=== PATIENT | male | born 1960 | race Caucasian/White ===

== ENCOUNTER 2020-12-06 04:52 | Emergency (ER) | payer MEDICAID ==
[~2020-12-06] VITALS: Ht 185.4 cm; Wt 63.6 kg
[2020-12-06] MEDS ORDERED: dexamethasone sod phosphate 10mg/ml inj IV STA (05:08)
[2020-12-06] MEDS ORDERED: piperacillin/tazo 3.375gm/50ml 50 ML IV STA (05:08)
[2020-12-06] MEDS ORDERED: normal saline 1000ML IV soln IVB ONE (05:10)
[2020-12-06] MEDS ORDERED: PRED20TA PO (05:36)
[2020-12-06] MEDS ORDERED: DOXY100C43 PO (05:36)
[2020-12-06 06:11] VITALS: BP 143/85
== END 2020-12-06 06:14 | disposition home or self-care (01) ==
LOC: ER 04:55
DX: L03.211 Cellulitis of face (principal); L30.9 Dermatitis, unspecified; Z88.2 Allergy status to sulfonamides; Z88.8 Allergy status to other drugs, medicaments and biological substances; Z79.2 Long term (current) use of antibiotics; Z79.899 Other long term (current) drug therapy
CPT/HCPCS: 93005; 96365; 96375; 99284; J1100; J2543; J7030; 99285

== ENCOUNTER 2020-12-08 11:30 | Emergency (ER) | payer MEDICAID ==
[~2020-12-08] VITALS: Ht 175.3 cm; Wt 63.0 kg
[~2020-12-08 11:30] MED LIST: DOXY100C43 PO; PRED20TA PO
[2020-12-08] MEDS ORDERED: predniSONE 20 mg tablet PO ONE (13:00)
[2020-12-08] MEDS ORDERED: PRED20TA PO (13:03)
[2020-12-08 13:30] VITALS: BP 138/84
== END 2020-12-08 13:32 | disposition home or self-care (01) ==
LOC: ER 11:31
DX: R22.0 Localized swelling, mass and lump, head (principal); T36.4X5A Adverse effect of tetracyclines, initial encounter; T38.0X5A Adverse effect of glucocorticoids and synthetic analogues, initial encounter; Z88.2 Allergy status to sulfonamides; Z79.2 Long term (current) use of antibiotics; Z79.899 Other long term (current) drug therapy; Y92.89 Other specified places as the place of occurrence of the external cause
CPT/HCPCS: 99283; J7512

== ENCOUNTER 2020-12-16 15:28 | Emergency (ER) | payer MEDICAID ==
[~2020-12-16] VITALS: Ht 175.3 cm; Wt 65.5 kg
[2020-12-16] MEDS ORDERED: diphenhydrAMINE 25mg capsule PO ONE (15:35)
[2020-12-16 15:39] VITALS: BP 125/82
[2020-12-16] MEDS ORDERED: predniSONE 20 mg tablet PO ONE (15:45)
[2020-12-16] MEDS ORDERED: PRED20TA PO (15:51)
== END 2020-12-16 16:14 | disposition home or self-care (01) ==
LOC: ER 15:28
DX: L23.89 Allergic contact dermatitis due to other agents (principal); Z88.2 Allergy status to sulfonamides; Z79.899 Other long term (current) drug therapy
CPT/HCPCS: 99283; J7512; Q0163

== ENCOUNTER 2020-12-30 14:46 | Emergency (ER) | payer MEDICAID ==
[~2020-12-30] VITALS: Ht 175.3 cm; Wt 6.5 kg
[~2020-12-30 14:46] MED LIST changes: -DOXY100C43 PO
[2020-12-30 15:06] VITALS: BP 135/64
[2020-12-30] MEDS ORDERED: diphenhydrAMINE 25mg capsule PO ONE (16:25)
[2020-12-30] MEDS ORDERED: PRED20TA PO (16:38)
[2020-12-30] MEDS ORDERED: HYDR-3686 PO (16:38)
== END 2020-12-30 17:13 | disposition home or self-care (01) ==
LOC: ER 14:46
DX: R21 Rash and other nonspecific skin eruption (principal)
CPT/HCPCS: 99283; Q0163

== ENCOUNTER 2021-01-10 06:40 | Emergency (ER) | payer MEDICAID ==
[~2021-01-10] VITALS: Ht 170.2 cm; Wt 65.9 kg
[2021-01-10] MEDS ORDERED: albuterol 2.5 MG/3 ML nebule NEB ONE (07:15)
[2021-01-10] MEDS ORDERED: CefTRIAXone 2gm/D5W 50ml BAG 50 ML IV ONE (07:15)
[2021-01-10] MEDS ORDERED: methylPREDNISolone sod succ 125mg/2ml vial IV ONE (07:15)
[2021-01-10] MEDS ORDERED: ipratropium/albuterol 3ml nebule NEB ONE (07:15)
--- NOTE | 2021-01-10 08:13 | NUR ---
rt at bedside.
[2021-01-10 08:22] LABS: BASOPHILS # (AUTO) 0.1 X10'3 (0-0.2); BASOPHILS % (AUTO) 0.5 % (0-1); EOSINOPHILS # (AUTO) 0.1 X10'3 (0-0.9); HEMATOCRIT 41.5 % (42.0-52.0); LYMPHOCYTES % (AUTO) 9.2 % (21-51); MEAN CORPUSCULAR HEMOGLOBIN 29.4 PG (27.0-31.0); MEAN CORPUSCULAR HGB CONC 33.7 g/dL (33.0-36.5); MEAN CORPUSCULAR VOLUME 87.1 FL (78-98); MEAN PLATELET VOLUME 6.6 FL (7.4-10.4); MONOCYTES % (AUTO) 8.5 % (2-12); NEUTROPHILS # (AUTO) 9.1 X10'3 (1.8-7.7); NEUTROPHILS % (AUTO) 80.8 % (42-75); PLATELET COUNT 318 X10'3 (140-440); RED BLOOD COUNT 4.77 X10'6 (4.70-6.10); RED CELL DISTRIBUTION WIDTH 15.1 % (11.5-14.5); WHITE BLOOD COUNT 11.3 X10'3 (4.5-11.0)
[2021-01-10 08:30] LABS: ALANINE AMINOTRANSFERASE 14 U/L (12-78); ALBUMIN 3.4 G/DL (3.4-5.0); ALBUMIN/GLOBULIN RATIO 0.9 (1.1-1.5); ALKALINE PHOSPHATASE 91 IU/L (46-116); ANION GAP 4 (8-16); ASPARTATE AMINO TRANSFERASE 22 U/L (10-37); BILIRUBIN,TOTAL 0.2 MG/DL (0.1-1.0); BLOOD UREA NITROGEN 11 MG/DL (7-18); BUN/CREATININE RATIO 15.9 (5.4-32.0); CALCIUM 8.8 MG/DL (8.5-10.1); CHLORIDE 103 MMOL/L (99-107); CREATININE 0.69 MG/DL (0.60-1.10); GLUCOSE 112 MG/DL (70-104); SODIUM 138 MMOL/L (135-145); TOTAL CARBON DIOXIDE 31.2 MMOL/L (24-32); TOTAL PROTEIN 7.2 G/DL (6.4-8.2); eGFR > 90 ML/MIN
[2021-01-10] MEDS ORDERED: PRED20TA PO (09:51)
[2021-01-10] MEDS ORDERED: CEPH-585 PO (09:51)
[2021-01-10] MEDS ORDERED: ALBU18HF2 INH (09:55)
[2021-01-10 10:17] VITALS: BP 119/74
== END 2021-01-10 10:59 | disposition home or self-care (01) ==
LOC: ER 06:41
DX: J44.1 Chronic obstructive pulmonary disease with (acute) exacerbation (principal); R05.9 Cough, unspecified; R09.89 Other specified symptoms and signs involving the circulatory and respiratory systems; R21 Rash and other nonspecific skin eruption; F17.200 Nicotine dependence, unspecified, uncomplicated; Z88.2 Allergy status to sulfonamides; Z88.8 Allergy status to other drugs, medicaments and biological substances; Z79.2 Long term (current) use of antibiotics; Z79.899 Other long term (current) drug therapy
CPT/HCPCS: 36415; 71045; 80053; 85025; 93005; 94640; 96365; 96375; 99285; J0696; J2930; 94760

== ENCOUNTER 2021-01-26 20:51 | Emergency (ER) | payer MEDICAID ==
[~2021-01-26] VITALS: Ht 182.9 cm; Wt 62.0 kg
[2021-01-26 20:51] VITALS: BP 144/74
[~2021-01-26 20:51] MED LIST changes: +ALBU18HF2 INH; +CEPH-585 PO; -PRED20TA PO
[2021-01-26] MEDS ORDERED: BUPR1FIL3 SL (21:09)
[2021-01-26] MEDS ORDERED: PANT-47 PO (21:09)
[2021-01-26] MEDS ORDERED: FLO0.4C PO (21:09)
[2021-01-26] MEDS ORDERED: HYDR-3686 PO (21:11)
--- NOTE | 2021-01-26 21:18 | NUR ---
Pt stood at the side of the bed to remove his pants and his O2 sat dropped from 91% on RA to 83%.
[2021-01-26 21:47] LABS: BASOPHILS % (AUTO) 0.4 % (0-1); EOSINOPHILS # (AUTO) 0.2 X10'3 (0-0.9); EOSINOPHILS % (AUTO) 1.9 % (0-6); HEMATOCRIT 37.3 % (42.0-52.0); HEMOGLOBIN 12.6 g/dl (14.0-17.9); LYMPHOCYTES # (AUTO) 1.2 X10'3 (1.1-4.8); LYMPHOCYTES % (AUTO) 9.6 % (21-51); MEAN CORPUSCULAR HEMOGLOBIN 29.3 PG (27.0-31.0); MEAN CORPUSCULAR HGB CONC 33.8 g/dL (33.0-36.5); MEAN CORPUSCULAR VOLUME 86.7 FL (78-98); MEAN PLATELET VOLUME 6.9 FL (7.4-10.4); MONOCYTES % (AUTO) 8.4 % (2-12); NEUTROPHILS # (AUTO) 9.8 X10'3 (1.8-7.7); NEUTROPHILS % (AUTO) 79.7 % (42-75); PLATELET COUNT 257 X10'3 (140-440); RED CELL DISTRIBUTION WIDTH 14.7 % (11.5-14.5); WHITE BLOOD COUNT 12.3 X10'3 (4.5-11.0)
[2021-01-26 21:57] LABS: ALANINE AMINOTRANSFERASE 17 U/L (12-78); ALBUMIN 3.2 G/DL (3.4-5.0); ALBUMIN/GLOBULIN RATIO 0.8 (1.1-1.5); ALKALINE PHOSPHATASE 101 IU/L (46-116); ANION GAP 3 (8-16); ASPARTATE AMINO TRANSFERASE 23 U/L (10-37); BILIRUBIN,TOTAL 0.3 MG/DL (0.1-1.0); BLOOD UREA NITROGEN 9 MG/DL (7-18); BUN/CREATININE RATIO 12.5 (5.4-32.0); CALCIUM 8.8 MG/DL (8.5-10.1); CHLORIDE 104 MMOL/L (99-107); CREATININE 0.72 MG/DL (0.60-1.10); GLUCOSE 98 MG/DL (70-104); POTASSIUM 3.7 MMOL/L (3.5-5.1); SODIUM 140 MMOL/L (135-145); TOTAL CARBON DIOXIDE 32.8 MMOL/L (24-32); TOTAL PROTEIN 7.1 G/DL (6.4-8.2); eGFR > 90 ML/MIN
[2021-01-26 22:49] LABS: CLARITY,URINE CLEAR (Clear); COLOR,URINE YELLOW (Yellow); UA COLLECTION TYPE CLN CATCH MIDSTREAM
[2021-01-26 22:50] LABS: GLUCOSE, URINE NEGATIVE (Neg); KETONES,URINE NEGATIVE (Neg); LEUKOCYTE ESTERASE ,URINE NEGATIVE (Neg); NITRITES, URINE NEGATIVE (Neg); OCCULT BLOOD,URINE NEGATIVE (Neg); PROTEIN,URINE NEGATIVE (Neg); UROBILINOGEN,URINE 0.2 E.U/dL (0.2-1.0)
[2021-01-27 00:10] LABS: LACTATE DEHYDROGENASE 230 U/L (85-227)
[2021-01-27] MEDS ORDERED: ipratropium/albuterol 3ml nebule NEB STA (02:50)
[2021-01-27 03:36] LABS: D-DIMER 0.44 MG/L FEU (0-0.50)
[2021-01-27] MEDS ORDERED: predniSONE 5mg tablet PO ONE (04:30)
[2021-01-27] MEDS ORDERED: ALBU8HFA PO (04:32)
[2021-01-27] MEDS ORDERED: MINE50OI TOP (04:32)
== END 2021-01-27 05:37 | disposition home or self-care (01) ==
LOC: ER 20:52
DX: J44.1 Chronic obstructive pulmonary disease with (acute) exacerbation (principal); Z88.8 Allergy status to other drugs, medicaments and biological substances; Z88.2 Allergy status to sulfonamides; Z53.21 Procedure and treatment not carried out due to patient leaving prior to being seen by health care provider
CPT/HCPCS: 36415; 71045; 80053; 81003; 82553; 83605; 83615; 84145; 85025; 85379; 87040; 87635; 94640; 99284; C9803; J7512; 94760

== ENCOUNTER 2021-12-26 06:15 | Day surgery (SDC) | payer MEDICAID ==
[2021-12-26] VITALS (9 sets, daily range): BP systolic 114–144; BP diastolic 56–80
[~2021-12-26] VITALS: Ht 177.8 cm; Wt 63.0 kg
[~2021-12-26 06:15] MED LIST changes: +BUPR1FIL3 SL; -CEPH-585 PO; +FLO0.4C PO; +HYDR-3686 PO; +MINE50OI TOP; +PANT-47 PO
[2021-12-26] MEDS ORDERED: cefazolin/dext.iso 2gm/100ml 100 ML IV ONE (06:35)
[2021-12-26] MEDS ORDERED: normal saline 1000ml 1,000 ML IV PRN (06:35)
[2021-12-26] MEDS ORDERED: CALC-1215 PO (07:07)
[2021-12-26] MEDS ORDERED: IBUP-1985 PO (07:07)
[2021-12-26] MEDS ORDERED: TERB250T89 PO (07:07)
[2021-12-26] MEDS ORDERED: SUMA50TA PO (07:07)
[2021-12-26] MEDS ORDERED: KETO120S5 TP (07:07)
[2021-12-26] MEDS ORDERED: LISI10TA27 PO (07:07)
[2021-12-26] MEDS ORDERED: BUPR150T8 PO (07:07)
[2021-12-26] MEDS ORDERED: TETR-59 PO (07:07)
[2021-12-26] MEDS ORDERED: ALBU18HF2 IH (07:07)
[2021-12-26 07:57] LABS: BASOPHILS # (AUTO) 0.1 X10'3 (0-0.2); BASOPHILS % (AUTO) 1.2 % (0-1); EOSINOPHILS # (AUTO) 0.1 X10'3 (0-0.9); EOSINOPHILS % (AUTO) 2.3 % (0-6); HEMATOCRIT 37.4 % (42.0-52.0); HEMOGLOBIN 13.2 g/dl (14.0-17.9); LYMPHOCYTES # (AUTO) 1.5 X10'3 (1.1-4.8); LYMPHOCYTES % (AUTO) 31.8 % (21-51); MEAN CORPUSCULAR HEMOGLOBIN 31.1 PG (27.0-31.0); MEAN CORPUSCULAR HGB CONC 35.4 g/dL (33.0-36.5); MEAN CORPUSCULAR VOLUME 87.9 FL (78-98); MEAN PLATELET VOLUME 6.4 FL (7.4-10.4); MONOCYTES # (AUTO) 0.4 X10'3 (0-0.9); MONOCYTES % (AUTO) 8.2 % (2-12); NEUTROPHILS # (AUTO) 2.7 X10'3 (1.8-7.7); NEUTROPHILS % (AUTO) 56.5 % (42-75); PLATELET COUNT 249 X10'3 (140-440); RED BLOOD COUNT 4.26 X10'6 (4.70-6.10); RED CELL DISTRIBUTION WIDTH 13.6 % (11.5-14.5); WHITE BLOOD COUNT 4.8 X10'3 (4.5-11.0)
[2021-12-26] MEDS ORDERED: diphenhydrAMINE 50 mg/ml inj ONE (08:57)
[2021-12-26] MEDS ORDERED: fentaNYL/PF 50MCG/1 ML 2ML syringe ONE ×2 (08:58→10:58)
[2021-12-26] MEDS ORDERED: midazolam 1 mg/ML 2ml injection ONE ×3 (08:58→10:41)
[2021-12-26] MEDS ORDERED: proCHLORperazine 10 MG/2 ml inj ONE (11:02)
[2021-12-26] MEDS ORDERED: normal saline 1000ml 1,000 ML IV SCH (11:40)
[2021-12-26] MEDS ORDERED: HYDROcodone/acetaminophen 5mg/325mg tablet PO PRN (11:40)
== END 2021-12-26 13:40 | disposition home or self-care (01) ==
LOC: SSTAY O 06:15
PROVIDERS: ATTEND Radiology Vascular & Interventional Radiology
DX: M99.83 Other biomechanical lesions of lumbar region (principal); Z79.899 Other long term (current) drug therapy; Z88.8 Allergy status to other drugs, medicaments and biological substances; Z88.2 Allergy status to sulfonamides; Z98.890 Other specified postprocedural states
CPT/HCPCS: 20225; 36415; 85025; 87811; 99152; 99153; J0780; J1200; J2250; J3010; J7030; A4620

== ENCOUNTER 2023-03-30 08:04 | Emergency (ER) | payer MEDICAID ==
[~2023-03-30] VITALS: Ht 167.6 cm; Wt 66.3 kg
[~2023-03-30 08:04] MED LIST changes: +ALBU18HF2 IH; -ALBU18HF2 INH; +BUPR150T8 PO; +CALC-1215 PO; -HYDR-3686 PO; +IBUP-1985 PO; +KETO120S5 TP; +LISI10TA27 PO; -MINE50OI TOP; +SUMA50TA PO; +TERB250T89 PO; +TETR-59 PO
[2023-03-30 08:28] VITALS: BP 112/76; PULSE 82; RESP 18; O2SAT 98
[2023-03-30] MEDS ORDERED: dexamethasone sod phosphate 10mg/ml inj IM STA (09:12)
[2023-03-30] MEDS ORDERED: METH4TAB81 PO (09:15)
[2023-03-30 09:59] VITALS: TEMP 98.2
== END 2023-03-30 10:00 | disposition home or self-care (01) ==
LOC: ER 08:04
DX: L30.9 Dermatitis, unspecified (principal); Z88.1 Allergy status to other antibiotic agents; Z88.2 Allergy status to sulfonamides; Z79.899 Other long term (current) drug therapy; Z79.1 Long term (current) use of non-steroidal anti-inflammatories (NSAID)
CPT/HCPCS: 96372; 99283; J1100

== ENCOUNTER 2023-04-02 11:12 | Emergency (ER) | payer MEDICAID ==
[~2023-04-02] VITALS: Ht 167.6 cm; Wt 66.2 kg
[~2023-04-02 11:12] MED LIST changes: +METH4TAB81 PO
[2023-04-02 11:16] VITALS: BP 118/72; PULSE 97; RESP 16; TEMP 98.7; O2SAT 96
[2023-04-02] MEDS ORDERED: HYDR28OI2 TOP (11:41)
[2023-04-02] MEDS ORDERED: DIPH25CA83 PO (11:41)
[2023-04-02] MEDS ORDERED: TRIA15CR61 TOP (11:51)
== END 2023-04-02 12:10 | disposition home or self-care (01) ==
LOC: ER 11:12
DX: L30.9 Dermatitis, unspecified (principal); Z88.8 Allergy status to other drugs, medicaments and biological substances; Z88.2 Allergy status to sulfonamides; Z88.1 Allergy status to other antibiotic agents; Z79.899 Other long term (current) drug therapy; Z79.1 Long term (current) use of non-steroidal anti-inflammatories (NSAID); Z79.2 Long term (current) use of antibiotics
CPT/HCPCS: 99283

== ENCOUNTER 2023-04-19 09:53 | Emergency (ER) | payer MEDICAID ==
[~2023-04-19] VITALS: Ht 167.6 cm; Wt 64.1 kg
[~2023-04-19 09:53] MED LIST changes: +DIPH25CA83 PO; +HYDR28OI2 TOP; +TRIA15CR61 TOP
[2023-04-19 09:55] VITALS: BP 96/52; PULSE 82; RESP 18; TEMP 97.5; O2SAT 94
[2023-04-19] MEDS ORDERED: PRED20TA PO (10:08)
[2023-04-19] MEDS: dexamethasone sod phosphate 10mg/ml inj IM STA (10:20)
== END 2023-04-19 10:24 | disposition home or self-care (01) ==
LOC: ER 09:54
DX: R21 Rash and other nonspecific skin eruption (principal); Z88.2 Allergy status to sulfonamides; Z79.899 Other long term (current) drug therapy; Z79.2 Long term (current) use of antibiotics; Z79.1 Long term (current) use of non-steroidal anti-inflammatories (NSAID)
CPT/HCPCS: 96372; 99283; J1100

== ENCOUNTER 2023-04-27 12:43 | Emergency (ER) | payer MEDICAID ==
[~2023-04-27] VITALS: Ht 167.6 cm; Wt 65.3 kg
[2023-04-27 13:32] VITALS: BP 116/57; PULSE 101; RESP 16; TEMP 98.5; O2SAT 95
[2023-04-27] MEDS ORDERED: TETR-59 PO (15:26)
== END 2023-04-27 15:46 | disposition home or self-care (01) ==
LOC: ER 12:43
DX: L03.313 Cellulitis of chest wall (principal); Z88.8 Allergy status to other drugs, medicaments and biological substances; Z88.1 Allergy status to other antibiotic agents; Z88.2 Allergy status to sulfonamides; Z88.6 Allergy status to analgesic agent; Z79.899 Other long term (current) drug therapy; Z79.1 Long term (current) use of non-steroidal anti-inflammatories (NSAID)
CPT/HCPCS: 99283

== ENCOUNTER 2024-04-10 14:54 | Emergency (ER) | payer MEDICAID ==
[~2024-04-10] VITALS: Ht 167.6 cm; Wt 68.6 kg
[~2024-04-10 14:54] MED LIST changes: -TRIA15CR61 TOP
[2024-04-10 15:00] VITALS: TEMP 98.4
[2024-04-10 15:34] LABS: BASOPHILS % (AUTO) 0.4 % (0-1); EOSINOPHILS # (AUTO) 0.1 X10'3 (0-0.9); EOSINOPHILS % (AUTO) 0.6 % (0-6); HEMATOCRIT 42.2 % (42.0-52.0); HEMOGLOBIN 14.1 g/dl (14.0-17.9); LYMPHOCYTES # (AUTO) 1.4 X10'3 (1.1-4.8); LYMPHOCYTES % (AUTO) 13.8 % (21-51); MEAN CORPUSCULAR HEMOGLOBIN 28.1 PG (27.0-31.0); MEAN CORPUSCULAR HGB CONC 33.4 g/dL (33.0-36.5); MEAN CORPUSCULAR VOLUME 84.3 FL (78-98); MEAN PLATELET VOLUME 6.3 FL (7.4-10.4); MONOCYTES # (AUTO) 0.6 X10'3 (0-0.9); MONOCYTES % (AUTO) 6.2 % (2-12); NEUTROPHILS # (AUTO) 7.8 X10'3 (1.8-7.7); PLATELET COUNT 423 X10'3 (140-440); RED BLOOD COUNT 5.01 X10'6 (4.70-6.10); RED CELL DISTRIBUTION WIDTH 14.4 % (11.5-14.5); WHITE BLOOD COUNT 9.9 X10'3 (4.5-11.0)
[2024-04-10 15:50] LABS: ALANINE AMINOTRANSFERASE 23 U/L (12-78); ALBUMIN 3.4 G/DL (3.4-5.0); ALBUMIN/GLOBULIN RATIO 0.8 (1.1-1.5); ALKALINE PHOSPHATASE 159 IU/L (46-116); ANION GAP 5 (8-16); ASPARTATE AMINO TRANSFERASE 25 U/L (10-37); BILIRUBIN,TOTAL 0.5 MG/DL (0.1-1.0); BLOOD UREA NITROGEN 19 MG/DL (7-18); BUN/CREATININE RATIO 17.1 (10.0-20.0); CALCIUM 9.9 MG/DL (8.5-10.1); CHLORIDE 103 MMOL/L (99-107); CREATININE 1.11 MG/DL (0.60-1.10); GLUCOSE 113 MG/DL (70-104); POTASSIUM 4.6 MMOL/L (3.5-5.1); SODIUM 140 MMOL/L (135-145); TOTAL CARBON DIOXIDE 31.8 MMOL/L (24-32); TOTAL PROTEIN 7.5 G/DL (6.4-8.2); eCRCL 62 ML/MIN; eGFR 67 ML/MIN
[2024-04-10] MEDS ORDERED: BUDE10.22 INH (15:50)
[2024-04-10] MEDS ORDERED: DOXY100C43 PO (15:51)
[2024-04-10] MEDS ORDERED: PRED50TA PO (15:52)
[2024-04-10] MEDS ORDERED: DOXYCYCLINE 100MG CAPSULE PO STA (15:53)
[2024-04-10 15:57] LABS: PRO BRAIN NATRIURETIC PEPTIDE 1522 PG/ML (0-125)
[2024-04-10] MEDS: ipratropium 0.5 MG/2.5ML nebule IH ONE (16:02)
[2024-04-10] MEDS: albuterol 2.5 MG/3 ML nebule NEB ONE (16:02)
[2024-04-10 16:06] VITALS: PULSE 86; PULSE 88; RESP 14; RESP 16; O2SAT 100; O2SAT 99
[2024-04-10] MEDS: predniSONE 20 mg tablet PO ONE (16:39)
[2024-04-10 16:41] VITALS: BP 117/74; PULSE 76; RESP 16; O2SAT 95
== END 2024-04-10 20:30 | disposition home or self-care (01) ==
LOC: ER 14:55 → UNDOADMIN 20:25 → ED HOLD 20:25 → ER 20:30 → UNDODISIN 20:30
DX: J44.9 Chronic obstructive pulmonary disease, unspecified (principal); Z88.2 Allergy status to sulfonamides; Z88.8 Allergy status to other drugs, medicaments and biological substances
CPT/HCPCS: 36415; 71045; 80053; 83880; 84484; 85025; 93005; 94640; 99285; J7512; 94760; G0378